=== PATIENT | male | born 1980 | race Caucasian/White ===

== ENCOUNTER 2020-09-07 13:29 | Emergency (ER) | payer OTHER, SELFPAY ==
[2020-09-07 13:29] VITALS: BP 161/100; PULSE 85; RESP 14; TEMP 36.3; O2SAT 100
--- NOTE | 2020-09-07 13:49 | ECG_ITS ---
Measurements Intervals [place] Rate: 89 P: 79 [place]: 159 QRS: 79 QRSD: 99 T: 64 QT: 363 QTc: 443 Interpretive Statements SINUS RHYTHM RIGHT ATRIAL ENLARGEMENT POSSIBLE LEFT ATRIAL ENLARGEMENT BASELINE WANDER- V4-V5 BORDERLINE ECG Electronically Signed On 09-07-2020 14:57:00 BEAN ROASTER by Vito Braga D.O.
--- NOTE | 2020-09-07 13:52 | ED.OVERDOSE ---
HPI - Overdose General Chief Complaint: Overdose Stated Complaint: ambulance Time Seen by Provider: 09/07/20 13:45 Source: patient Mode of arrival: EMS Limitations: other (attitude) History of Present Illness HPI Narrative: Patient states he is an alcoholic. He ran out of alcohol last pm and then over the course of last pm he drank a cup full of methanol. He come in now because he is not feeling well, and because he has become very sensitive to light. complaint: intentional overdose Onset (ago): hour(s) (He drank a cup full of methanol last pm ) Intent: other (He says he drank methanol to become intoxicated. ) How Overdose Was Discovered: called 911 Context: Accidental Overdose: wanted to get high Related Data Home Medications Medication Instructions Recorded Confirmed No Home Medications 09/07/20 09/07/20 Allergies Allergy/AdvReac Type Severity Reaction Status Date / Time No Known Allergies Allergy Verified 09/07/20 13:42 Review of Systems Review of Systems: ROS unobtainable: Yes other Constitutional: Comments: complains of diffuse pain Eyes: Eyes: Reports change in vision and Reports photophobia Comments: Very sensitive to light, ENT: Reports system reviewed and no additional complaints, except as documented Cardiovascular: Cardiovascular: Reports no additional cardiovascular complaints Respiratory: Respiratory: Reports no additional respiratory complaints Gastrointestinal: Comments: complains of mild diffuse abdominal discomfort Genitourinary: Genitourinary: Reports no additional male genitourinary complaints Musculoskeletal: Musculoskeletal: Reports no additional musculoskeletal complaints Integumentary/Breasts: Skin/Breast: Reports system reviewed and no additional complaints, except as docu Neurologic: Reports system reviewed and no additional complaints, except as documented Psychiatric: Psychiatric: Reports no additional psychiatric complaints Endocrine: Endocrine: Reports no additional endocrine complaints Hematologic/Lymphatic: Hematologic/Lymphatic: Reports no additional hematologic/lymphatic complaints Allergic/Immunologic: Allergic/Immunologic: Reports no additional allergic/immunologic complaints REPLACED BY [facility] Past Medical History Medical History Alcohol abuse Surgical History Surgical History (Updated 09/07/20 @ 15:46 by Mingo Wilson MD) No significant past surgical history Family History Family History (Updated 09/07/20 @ 15:47 by Mingo Wilson MD) Mother Family history non-contributory Social History Social History (Updated 09/07/20 @ 15:51 by Mingo Wilson MD) Alcohol intake: current Alcohol use details: Alcohol in excess daily Exam Const: Orientation/consciousness: patient oriented x3 HENMT: Head: normal to inspection General nose exam: Normal external nose present Mouth: Yes moist mucous membranes Eyes: Conjunctivae: conjunctivae normal and other (Fundoscopic: He could not cooperate. ) Neck: Neck: normal visual inspection Chest: Chest palpation & inspection: normal inspection of the chest Resp: Effort & Inspection: normal respiratory effort Auscultation: clear to auscultation bilaterally Cardio: Rate: regular rate Rhythm: regular rhythm GI: GI Palp: Yes Soft to palpation Skin: General skin exam: normal color Neuro: General: patient oriented x3 and moves all extremities Course Course Emergency Course: The patient was evaluated with labs, and EKG. Because of his ph, we gave him 2 amps of sodium bicarbonate twice. He was given folic acid and thiamine. He repeatedly pulled out IVs and made his care difficult. Vital Signs Vital signs: Vital Signs Temperature 36.3 C L 09/07/20 13:29 Pulse Rate 85 09/07/20 13:29 Respiratory Rate 14 09/07/20 13:29 Blood Pressure 161/100 H 09/07/20 13:29 Pulse Oximetry 100 09/07/20 13:29 Temperature 37.1 C 09/07/20 18:27 Pulse Rate 78 09/07/20 18:27 Respiratory
[2020-09-07 14:02] VITALS: RESP 14
--- NOTE | 2020-09-07 14:05 | PC.NURSE ---
1330 POISON CONTROL CONTACTED. RN SPOKE WITH SHALA. CASE #: [id number]. SHALA REQUESTED THAT ERP ORDER TOX SCREEN, SALICYLATE, TYLENOL, ETOH, UDS, CMP, CBC, MAG, ABG, OSMO, ETHALINE GLYCOL, METHANOL, AND [address] WAGNER INFORMED.
[2020-09-07 14:10] LABS: Basophils Absolute Auto 0.02 K/mm3 (0.00-0.10); Basophils Percent Auto 0.2 % (0.0-1.0); Eosinophils Absolute Auto 0.31 K/mm3 (0.02-0.50); Eosinophils Percent Auto 3.4 % (1.0-6.0); Hematocrit 46.2 % (40.0-54.0); Immature Granulocyte Absolute 0.12 K/mm3 (0.00-0.00); Immature Granulocyte Percent A 1.3 % (0.0-0.0); Lymphocytes Absolute Auto 1.37 K/mm3 (1.10-4.50); Lymphocytes Percent Auto 14.8 % (18.0-42.0); Mean Corpuscular HGB Conc 30.3 g/dL (32.0-36.0); Mean Corpuscular Hemoglobin 22.9 pg (27.0-31.0); Mean Corpuscular Volume 75.6 fL (78.0-102.0); Mean Platelet Volume 9.3 fl (8.7-11.0); Monocytes Absolute Auto 0.73 K/mm3 (0.10-0.90); Monocytes Percent Auto 7.9 % (2.0-11.0); Neutrophils Absolute Auto 6.7 K/mm3 (1.7-7.2); Neutrophils Percent Auto 72.4 % (50.0-70.0); Platelet Count Result 417 K/mm3 (150-420); Red Blood Count 6.11 M/mm3 (4.70-6.10); Red Cell Distribution Width 16.1 % (11.6-14.4); White Blood Count 9.3 K/mm3 (4.8-10.8)
--- NOTE | 2020-09-07 14:12 | PC.NURSE ---
PATIENT IS ALERT AND ORIENTED X3, ANSWERING QUESTIONS APPROPRIATELY. PATIENT CONTINUES TO BE UNCOOPERATIVE AND AGGRESSIVE, CURSING AND NAME CALLING STAFF MEMBERS. PT IS NOW VOMITING. ERP AWARE. PT REMOVED IV ACCESS THAT WAS PLACED BY EMS AND IS REFUSING NEW PLACEMENT OF IV AT THIS TIME. PT INSTRUCTED [facility] TO GET OUT OF THE ROOM. PT IS ALSO REFUSING PHYSICAL ASSESSMENT TO BE PERFORMED BY RN AND ERP. RN ATTEMPTED TO EDUCATE, PT REFUSING.
[2020-09-07 14:13] LABS: Add Urine Microscopic? NO; Appearance Urine Clear (Clear); Bilirubin Urine Negative (Negative); Blood Urine Negative (Negative); Color Urine Yellow (Yellow); Glucose Urine UA Negative (Negative); Ketones Urine Negative (Negative); Leukocyte Esterase Ur Negative (Negative); Nitrate Urine Negative (Negative); Protein Urine Negative (Negative); Specific Grav Ur >= 1.030 (1.010-1.020); Urobilinogen Urine 0.2 mg/dL (0.2-1.0)
--- NOTE | 2020-09-07 14:17 | PC.NURSE ---
LAB DEPARTMENT STATES THAT THEY ARE UNABLE TO GET ETHYLENE GLYCOL, THIS IS A SEND OUT. ERP MADE AWARE.
[2020-09-07 14:20] LABS: Amphetamine Screen Urine Negative (Negative); Barbiturate Screen Urine Negative (Negative); Benzodiazepines Screen Urine Negative (Negative); Cannabinoid Screen Urine Positive (Negative); Cocaine Screen Urine Negative (Negative); Methadone Screen Urine Negative (Negative); Opiate Screen Urine Negative (Negative); Phencyclidine Screen Urine Negative (Negative)
[2020-09-07 14:30] LABS: Alanine Aminotransferase 45 U/L (16-63); Albumin Level 4.4 g/dL (3.4-5.0); Alkaline Phosphatase 105 U/L (46-116); Anion Gap 23 mmol/L (8-16); Aspartate Amino Transferase 26 U/L (15-37); Bilirubin,Total 0.1 mg/dL (0.00-1.00); Blood Urea Nitrogen 15 mg/dL (7-18); Calcium 7.7 mg/dL (8.5-10.1); Carbon Dioxide 11 mmol/L (21-32); Chloride 101 mmol/L (98-108); Estimated CRCL calculation 91 ml/min; Estimated Glomerular Filt Rate > 60; Glucose 109 mg/dL (70-99); Osmolality Calculated 281 mOsm/kg (285-295); Potassium 5.1 mmol/L (3.5-5.1); Sodium 135 mmol/L (136-145); Total Protein 8.5 g/dL (6.4-8.2)
[2020-09-07 14:31] LABS: Salicylate 2.7 mg/dL (2.8-20.0)
[2020-09-07 14:31] LABS: Ethanol < 3 mg/dL (0-6)
[2020-09-07 14:31] LABS: Base Excess ABG -22.4 mmol/L (0-2); HCO3 ABG 5.1 mmol/L (23-29); Oxygen Content ABG 20.3 %vol (16.0-22.0); Oxygen Saturation ABG 98.5 % (95-97); Oxyhemoglobin 97.2 % (94-100); PCO2 ABG 16.6 mmHg (35-45); PO2 ABG 132.4 mmHg (80-90); Total Hemoglobin 14.7 g/dL
[2020-09-07 14:32] LABS: Acetaminophen < 2 ug/mL (10-30)
[2020-09-07 14:32] LABS: Magnesium 2.1 mg/dL (1.8-2.4)
[2020-09-07 14:33] LABS: Device ROOM AIR; Site Drawn LEFT RADIAL
--- NOTE | 2020-09-07 14:40 | PC.NURSE ---
REPORT PROVIDED TO ONCOMING RN, ZECHARIAH Prater
--- NOTE | 2020-09-07 15:29 | PC.NURSE ---
1510 Called [facility] no ICU bed 1522 Called [place], [place] no ICU beds 1533 Called [place], [place] accepted, Adnios
[2020-09-07 15:46] LABS: SARS-CoV-2 Ag Negative (Negative)
[2020-09-07] MEDS: THIAMINE HCL 200 MG/2 ML VIAL 100 MG IV PUSH (16:00)
[2020-09-07] MEDS: ONDANSETRON INJ 4 MG/2 ML VIAL IV PUSH (16:00)
[2020-09-07] MEDS: SODIUM BICARBONATE 8.4% 50 MEQ/50 ML SYRINGE IV PUSH ×4 (16:00→20:00)
[2020-09-07 16:15] LABS: Lactic Acid Reflex 0.9 mmol/L (0.4-2.0)
[2020-09-07] MEDS: THIAMINE HCL 200 MG/2 ML VIAL 100 MG IM (16:37)
[2020-09-07] MEDS: KETOROLAC 30 MG/ML VIAL (*BKC) (16:38)
[2020-09-07] MEDS: SODIUM CHLORIDE 0.9% IV 1,000 ML 250 ML IV CONT (16:39)
[2020-09-07] MEDS: LORazepam INJ (*CRX) 2 MG/ML VIAL 1 MG IV PUSH (16:39)
--- NOTE | 2020-09-07 16:55 | PC.NURSE ---
poison control notified,
--- NOTE | 2020-09-07 17:11 | PC.NURSE ---
poison control recommended fomepizole this is not available at [place] per pharmacist & Iris William major account manager
--- NOTE | 2020-09-07 17:38 | PC.NURSE ---
Dr Nuñez Called from poison control, recommends IV Folic Acid, and IV Ethanol. Charge Nurse notified, no IV ethanol available.
[2020-09-07 18:00] LABS: Base Excess ABG -22.6 mmol/L (0-2); HCO3 ABG 4.1 mmol/L (23-29); Oxygen Content ABG 20.1 %vol (16.0-22.0); Oxygen Saturation ABG 98.5 % (95-97); Oxyhemoglobin 97.5 % (94-100); PCO2 ABG 12.5 mmHg (35-45); PO2 ABG 129.1 mmHg (80-90); Total Hemoglobin 14.5 g/dL; pH ABG 7.13 (7.35-7.45)
[2020-09-07 18:02] LABS: Device ROOM AIR; Modified Allen's Test Pass; Site Drawn LEFT RADIAL
[2020-09-07 18:17] LABS: Alanine Aminotransferase 42 U/L (16-63); Albumin Level 4.2 g/dL (3.4-5.0); Alkaline Phosphatase 105 U/L (46-116); Anion Gap 22 mmol/L (8-16); Aspartate Amino Transferase 22 U/L (15-37); Bilirubin,Total 0.2 mg/dL (0.00-1.00); Blood Urea Nitrogen 14 mg/dL (7-18); Calcium 7.6 mg/dL (8.5-10.1); Carbon Dioxide 11 mmol/L (21-32); Chloride 101 mmol/L (98-108); Estimated CRCL calculation 95 ml/min; Estimated Glomerular Filt Rate > 60; Glucose 105 mg/dL (70-99); Osmolality Calculated 278 mOsm/kg (285-295); Potassium 5.3 mmol/L (3.5-5.1); Sodium 134 mmol/L (136-145); Total Protein 8.2 g/dL (6.4-8.2)
--- NOTE | 2020-09-07 18:23 | PC.NURSE ---
DR SUAREZ NUMBER IS [phone]
--- NOTE | 2020-09-07 18:24 | PC.NURSE ---
1600 #20 RIGHT ARM, #18 LEFT ARM. 1815 PULLED OUT #18 LEFT ARM
[2020-09-07 18:27] VITALS: BP 140/88; PULSE 78; RESP 18; TEMP 37.1; O2SAT 99
--- NOTE | 2020-09-07 18:29 | PC.NURSE ---
1700 CALLED CHECK STATUS OF ICU BED AT [facility] 3HR WAIT 1814 CALLED AGAIN, UNABLE TO CHECK STATUS UNTIL 7PM
[2020-09-07] MEDS: FOLIC ACID 1 MG/0.2 ML INJ 15 MG IM (18:54)
--- NOTE | 2020-09-07 19:09 | PC.NURSE ---
REPORT GIVEN TO ONCOMING RNEFRAIN
--- NOTE | 2020-09-07 19:50 | PC.NURSE ---
Call back from [facility] bed assignment, report given.
--- NOTE | 2020-09-07 20:00 | PC.NURSE ---
Call placed to [facility] for transfer.
[2020-09-07 20:01] VITALS: BP 147/94; PULSE 84; RESP 20; TEMP 36.6; O2SAT 98
--- NOTE | 2020-09-07 20:19 | PC.NURSE ---
Report given to HANNAH pt. loaded to cot.
[2020-09-10 08:09] LABS: Reference Lab Test Name ETHYLENE GLYCOL
[2020-09-10 08:10] LABS: Reference Lab Test Result <10.0
[2020-09-15 12:45] LABS: Methyl Alcohol Level 279 mg/dL (None Detected)
--- NOTE | 2020-09-15 13:29 | PC.NURSE ---
[facility] ICU CONTACTED TO PROVIDE METHYL ALCOHOL LEVEL. ENVIRONMENTAL PLANNER STATES PT IS NO LONGER A PATIENT IN THE ICU.
== END 2020-09-07 20:25 | disposition short-term general hospital (02) ==
PROVIDERS: Emergency Provider Emergency Medicine
DX: T51 Toxic effect of alcohol (principal); F10.20 Alcohol dependence, uncomplicated; Z20.822 Contact with and (suspected) exposure to COVID-19
CPT/HCPCS: 36415; 36600; 80053; 80307; 81003; 82693; 82805; 83605; 83735; 83930; 84600; 85025; 87426; 93005; 96361; 96372; 96374; 96375; 96376; 99285; C9803; J1885; J2060; J2405; J3411; J7030

== ENCOUNTER 2024-03-25 01:16 | Emergency (ER) | payer OTHER, SELFPAY ==
[2024-03-25 01:26] VITALS: BP 159/95; PULSE 112; RESP 15; TEMP 36.7; O2SAT 97
--- NOTE | 2024-03-25 01:31 | PC.NURSE ---
Pt arrived with 20IV in LAC. This RN removed IV as pt is walking in and out of triage area. Pt wheeled himself out to [facility] looking for cigarettes this RN told pt he needed to stay in triage area, but if he were to leave notify staff at [employer]. Pt proceeded to walk back out of building out to administration building because he saw someone and wanted to see if they had cigarettes. Pt re educated on importance of staying within triage area and pt walked back outside.
--- NOTE | 2024-03-25 02:25 | PC.NURSE ---
Pt ambulated to triage desk and stated he was calling for a ride and did not have the time to wait around all night. Pt states he will seek medical attention if sx persist. Pt ambulatory out of dept to parking lot.
== END 2024-03-25 02:25 | disposition left against medical advice (07) ==
DX: Z02.83 Encounter for blood-alcohol and blood-drug test (principal)
CPT/HCPCS: 99199